=== PATIENT | female | born 1965 | race Two or more races ===

== ENCOUNTER 2017-09-25 16:45 | Inpatient (IN) | payer OTHER ==
[~2017-09-25] VITALS: Ht 157.5 cm; Wt 101.0 kg
[2017-09-25] MEDS ORDERED: MORPHINE SULFATE 4 MG/ML, 1ML IVPush PRN (17:00)
[2017-09-25] MEDS ORDERED: ONDANSETRON ODT 4 MG PO ONE (17:00)
[2017-09-25] MEDS ORDERED: SODIUM CHLORIDE FLUSH 10ML SYR IVF ONE (17:00)
[2017-09-25] MEDS ORDERED: ONDANSETRON ODT 4 MG ONE (17:24)
[2017-09-25] MEDS ORDERED: MORPHINE SULFATE 4 MG/ML, 1ML ONE (17:24)
[2017-09-25 17:40] LABS: ANION GAP 7 mmol/L (5-15); CALCIUM 8.4 mg/dL (8.5-10.1); CHLORIDE 108 mmol/L (98-107); CREATININE 0.64 mg/dL (0.55-1.02)
[2017-09-25 17:41] LABS: ALANINE AMINOTRANSFERASE 41 U/L (12-78); ALBUMIN 3.7 g/dL (3.4-5.0)
[2017-09-25 17:45] LABS: ALKALINE PHOSPHATASE 84 U/L (45-117); TOTAL PROTEIN 7.6 g/dL (6.4-8.2); TROPONIN I < 0.015 ng/mL (0.000-0.045)
[2017-09-25 17:57] LABS: MD YES; MEAN CORPUSCULAR HEMOGLOBIN 32.7 pg (27.0-34.8); MEAN CORPUSCULAR HGB CONC 34.3 g/dL (32.4-35.8); MEAN CORPUSCULAR VOLUME 95.3 fL (80-100); MEAN PLATELET VOLUME 14.4 fL (7.4-10.4); PLATELET COUNT 108 x10^3/uL (130-400); RED BLOOD COUNT 4.58 x10^6/uL (3.82-5.3); RED CELL DISTRIBUTION WIDTH 12.9 % (9.6-15.2)
[2017-09-25 18:07] LABS: BAND#(MANUAL) 0.08 x10^3/uL; BANDS%(MANUAL) 1 % (0-7); BASOS#(MANUAL) 0.16 x10^3/uL (0-0.1); BASOS% (MANUAL) 2 % (0-1); EOS#(MANUAL) 0.24 x10^3/uL (0.0-0.4); EOS% (MANUAL) 3 % (1-7); LYMPHS% (MANUAL) 24 % (22-44); MONOS#(MANUAL) 0.71 x10^3/uL (0.3-2.7); MONOS% (MANUAL) 9 % (2-9); REACTIVE LYMPHS # (MANUAL) 0.24 x10^3/uL (0-0); REACTIVE LYMPHS % (MANUAL) 3 % (0-0); SEG#(MANUAL) 4.58 x10^3/uL (1.8-6.8); SEGS% (MANUAL) 58 % (42-75)
[2017-09-25 18:09] LABS: <PLATELET ESTIMATE> DECREASED; <RBC MORPHOLOGY> NORMAL
[2017-09-25 18:10] LABS: LARGE PLATELETS 1+
[2017-09-25] MEDS ORDERED: BACL20TA PO (18:44)
[2017-09-25] MEDS ORDERED: NAPR-856 PO (18:44)
[2017-09-25] MEDS ORDERED: PROP20TA PO (18:44)
[2017-09-25] MEDS ORDERED: RANI150T23 PO (18:44)
[2017-09-25] MEDS ORDERED: LISI40TA PO (18:44)
[2017-09-25] MEDS ORDERED: ATOR40TA78 PO (18:44)
[2017-09-25] MEDS ORDERED: FLUO40CA9 PO (18:44)
[2017-09-25] MEDS ORDERED: CLON0.5T20 PO (18:44)
[2017-09-25] MEDS ORDERED: SODIUM CHLORIDE 0.9% 1,000 ML IV SCH (19:08)
[2017-09-25] MEDS ORDERED: LABETALOL 5MG/ML, 20ML IVPush PRN (19:30)
[2017-09-25] MEDS ORDERED: ONDANSETRON ODT 4 MG PO PRN (19:30)
[2017-09-25] MEDS ORDERED: hydrALAzine 20 MG/ML, 1ML IVPush PRN (19:30)
[2017-09-25] MEDS ORDERED: ACETAMINOPHEN 325 MG TABLET PO PRN (19:30)
[2017-09-25 19:58] VITALS: BP_SYST 174; BP_SYST 177; BP_DIAS 106; BP_DIAS 99
[2017-09-25 20:33] VITALS: BP 151/98
[2017-09-25] MEDS: FAMOTIDINE 20 MG TABLET PO SCH (20:43)
[2017-09-25] MEDS: ATORVASTATIN 40 MG TABLET PO SCH (20:43)
[2017-09-25] MEDS: KETOROLAC 30 MG/1 ML IVPush PRN (20:44)
[2017-09-25] MEDS: BUTALB/APAP/CAFFEINE 50MG/325MG/40MG PO PRN (22:20)
[2017-09-25] MEDS: ENOXAPARIN 40 MG/0.4 ML SQ SCH (22:20)
[2017-09-25 23:26] LABS: TROPONIN I < 0.015 ng/mL (0.000-0.045)
[2017-09-26 00:11] VITALS: BP 148/78
[2017-09-26 05:26] LABS: CHOLESTEROL, TOTAL 169 mg/dL (140-239)
[2017-09-26 05:31] LABS: CHOL/HDL RATIO 5.1; HDL CHOL % 20 % (28-40); HDL CHOLESTEROL (DIRECT) 33 mg/dL (40-60); LDL CHOLESTEROL,CALCULATED 61 mg/dL (54-169); LDL/HDL RATIO 1.8 (0.5-3.0); TRIGLYCERIDES 376 mg/dL (50-200); TROPONIN I < 0.015 ng/mL (0.000-0.045); VLDL CHOLESTEROL 75 mg/dL (0-25)
[2017-09-26 05:36] LABS: THYROID STIMULATING HORMONE 0.962 mIU/L (0.358-3.740)
[2017-09-26 07:18] VITALS: BP 125/79
[2017-09-26 08:21] VITALS: BP 138/88
[2017-09-26] MEDS: PROPRANOLOL 20 MG TABLET PO SCH (08:31)
[2017-09-26] MEDS: FAMOTIDINE 20 MG TABLET PO SCH ×2 (08:32→20:11)
[2017-09-26] MEDS: BACLOFEN 10 MG TABLET PO SCH (08:36)
[2017-09-26] MEDS: FLUOXETINE HCL 20 MG CAPSULE PO SCH (08:37)
[2017-09-26] MEDS: LISINOPRIL 20 MG TABLET PO SCH (08:47)
[2017-09-26] MEDS ORDERED: TEMPLATE NON-FORMULARY MED. (Ranitidine Hcl** (Zantac**) 150 MG) PO SCH (09:00)
[2017-09-26] MEDS ORDERED: REGADENOSON 0.4 MG/5 ML SYRINGE ONE (11:30)
[2017-09-26 12:57] VITALS: BP 135/85
[2017-09-26] MEDS: KETOROLAC 30 MG/1 ML IVPush PRN (13:33)
[2017-09-26] MEDS ORDERED: KETOROLAC 30 MG/1 ML IVPush SCH (17:30)
[2017-09-26] MEDS ORDERED: DIPHENHYDRAMINE 50 MG/ML, 1ML IVPush ONE (17:30)
[2017-09-26] MEDS ORDERED: METOCLOPRAMIDE 5 MG/ML, 2ML IVPush SCH (17:30)
[2017-09-26 19:12] VITALS: BP 133/84
[2017-09-26] MEDS: BUTALB/APAP/CAFFEINE 50MG/325MG/40MG PO PRN (20:11)
[2017-09-26] MEDS: ATORVASTATIN 40 MG TABLET PO SCH (20:11)
[2017-09-26] MEDS: ENOXAPARIN 40 MG/0.4 ML SQ SCH (20:11)
[2017-09-27 02:00] VITALS: BP 122/90
[2017-09-27 05:35] LABS: ALBUMIN 3.3 g/dL (3.4-5.0); ANION GAP 4 mmol/L (5-15); CALCIUM 8.1 mg/dL (8.5-10.1); CHLORIDE 109 mmol/L (98-107)
[2017-09-27 05:38] LABS: ALANINE AMINOTRANSFERASE 44 U/L (12-78); ALKALINE PHOSPHATASE 74 U/L (45-117); CREATININE 0.67 mg/dL (0.55-1.02); TOTAL PROTEIN 6.9 g/dL (6.4-8.2)
[2017-09-27 06:26] LABS: MD YES; MEAN CORPUSCULAR HEMOGLOBIN 32.7 pg (27.0-34.8); MEAN CORPUSCULAR HGB CONC 34.1 g/dL (32.4-35.8); MEAN PLATELET VOLUME 15.2 fL (7.4-10.4); PLATELET COUNT 93 x10^3/uL (130-400); RED BLOOD COUNT 4.25 x10^6/uL (3.82-5.3); RED CELL DISTRIBUTION WIDTH 13.4 % (9.6-15.2)
[2017-09-27 06:28] LABS: MONOS#(MANUAL) 0.32 x10^3/uL (0.3-2.7); MONOS% (MANUAL) 5 % (2-9); REACTIVE LYMPHS # (MANUAL) 0.13 x10^3/uL (0-0); REACTIVE LYMPHS % (MANUAL) 2 % (0-0); SEG#(MANUAL) 3.33 x10^3/uL (1.8-6.8); SEGS% (MANUAL) 52 % (42-75)
[2017-09-27 06:29] LABS: EOS#(MANUAL) 0.13 x10^3/uL (0.0-0.4); EOS% (MANUAL) 2 % (1-7); LYMPHS% (MANUAL) 39 % (22-44)
[2017-09-27 06:30] LABS: <RBC MORPHOLOGY> NORMAL
[2017-09-27 06:31] LABS: <PLATELET ESTIMATE> DECREASED; LARGE PLATELETS 2+
[2017-09-27 07:54] VITALS: BP 144/84
[2017-09-27] MEDS: FAMOTIDINE 20 MG TABLET PO SCH (08:15)
[2017-09-27] MEDS: LISINOPRIL 20 MG TABLET PO SCH (08:15)
[2017-09-27] MEDS: FLUOXETINE HCL 20 MG CAPSULE PO SCH (08:15)
[2017-09-27] MEDS: BACLOFEN 10 MG TABLET PO SCH (08:16)
[2017-09-27] MEDS: PROPRANOLOL 20 MG TABLET PO SCH (08:16)
[2017-09-27] MEDS ORDERED: AMLODIPINE 2.5 MG TABLET PO SCH (09:00)
[2017-09-27] MEDS: BUTALB/APAP/CAFFEINE 50MG/325MG/40MG PO PRN (09:37)
[2017-09-27] MEDS ORDERED: AMLO2.5T PO (15:24)
[2017-09-27] MEDS ORDERED: FLUO20CA8 PO (15:24)
[2017-09-27] MEDS ORDERED: FAMO20TA7 PO (15:24)
[2017-09-27 15:41] VITALS: BP 144/82
== END 2017-09-27 17:36 | disposition home or self-care (01) | DRG 305 ==
LOC: ED 18:50 → EDIP 18:55 → SUATTDRO 19:07 → 5SO 19:50
PROVIDERS: ADMIT Hospitalist; ATTEND Hospitalist
DX: I16.0 Hypertensive urgency (principal); D69.6 Thrombocytopenia, unspecified; Z68.41 Body mass index [BMI] 40.0-44.9, adult; K21.9 Gastro-esophageal reflux disease without esophagitis; G43.909 Migraine, unspecified, not intractable, without status migrainosus; E66.01 Morbid (severe) obesity due to excess calories; E78.5 Hyperlipidemia, unspecified; I10 Essential (primary) hypertension; R73.03 Prediabetes; Z79.82 Long term (current) use of aspirin; Z79.899 Other long term (current) drug therapy; Z87.891 Personal history of nicotine dependence; Z90.710 Acquired absence of both cervix and uterus
CPT/HCPCS: 36415; 71045; 78452; 80053; 80061; 83735; 84100; 84443; 84484; 85025; 93005; 93017; 96374; J1650; J1885; J2785; Q0162; A9502; C9898; J1200; J2765; J7030